=== PATIENT | female | born 1935 | race Caucasian/White ===

== ENCOUNTER 2016-12-25 20:10 | Emergency (ER) | payer MEDICARE, MEDICAID ==
[~2016-12-25] VITALS: Ht 170.2 cm; Wt 72.7 kg
[~2016-12-25 20:10] MED LIST: ACET1TAB12 PO; ACET325T51 PO; ALBU18HF INH; ALBU2.5V15 IH; ALPR0.25 PO; ALPR0.254 PO; AMLO10TA3 PO; ASPI-973 PO; BRIM5DRO BOTH_EYES; BRIN10DR BOTH_EYES; CARB15DR74; CHOL200016 PO; CYA1000I IM; CYAN100092 PO; ESCI20TA PO; HAL05 PO; LEVO75TA4 PO; LIDO700A6 TP; MEMA10SO PO; MORP-32 PO; MULT1CAP33 PO; MYLANTA PO; ONDA8TAB10 PO; OXYC1TAB24 PO; POLY17PO2 PO; QUET25TA PO; QUET50TA PO; SUCRETS; TRAV2.5D5 BOTH_EYES; [UNRECOGNIZED DRUG - CODE] PO
[2016-12-25 20:18] VITALS: BP 123/75; PULSE 80; RESP 16; O2SAT 97
--- NOTE | 2016-12-25 20:43 | ED.REPORT ---
HPI-Head Prob / Injury Date of Service Dec 25, 2016 ED Provider: Wagner Barbour DO Pt is a 81 year old female with a history of late stage Alzheimer's, HTN, and advanced dementia who presents to the ED via EMS after an unwitnessed ground level fall today. She c/o associated head pain and lip pain. LOC is unknown. Pt is currently taking aspirin, but no other blood thinners. Pt lives at [facility]. Her daughter reports confusion associated with Alzheimer's stating "she didn't recognize who I was and thought my brother was her boyfriend." Nursing Notes Stated Complaint: GROUND LEVEL FALL, HEAD INJURY Chief Complaint: Multiple Trauma/Fall Nursing Notes Reviewed: Yes Allergies: Coded Allergies: donepezil (Verified Adverse Reaction, Severe, Nightmares, 12/25/16) rivastigmine (Verified Adverse Reaction, Severe, 12/25/16) seizure-like activity and intubation required in July 2013 ER visit. duloxetine (Verified Adverse Reaction, Intermediate, confusion, 12/25/16) tramadol (Verified Adverse Reaction, Intermediate, GI upset, 12/25/16) venlafaxine (Verified Adverse Reaction, Intermediate, GI upset, 12/25/16) zolpidem (Unverified Adverse Reaction, Intermediate, oversedation, 12/25/16 ) Scheduled ([Mylanta]) 30 ML PO Q6 Acetaminophen (Acetaminophen) 325 Mg Tablet 650 MG PO Q6 Amlodipine (Amlodipine) 10 Mg Tablet 10 MG PO DAILY Aspirin (Aspirin) 81 Mg Tablet.dr 81 MG PO DAILY Brimonidine Tartrate/Timolol (Combigan Eye Drops) 5 Ml Drops 5 ML BOTH_EYES BID Brinzolamide (Azopt 1% Ophthalmic Suspension) 10 Ml Drops.susp 1 DROP BOTH_EYES TID Cholecalciferol (Vitamin D3) (Vitamin D) 2,000 Unit Tablet 2,000 UNIT PO DAILY Cyanocobalamin (Cyanocobalamin Injection) 1,000 Mcg/1 Ml Vial 1,000 MCG IM Monthly Cyanocobalamin (Vitamin B-12) (B-12) 1,000 Mcg Tablet 0 PO DAILY Escitalopram Oxalate (Lexapro) 20 Mg Tablet 20 MG PO DAILY Haloperidol (Haloperidol) 0.5 Mg Tablet 0.5 MG PO Q12 Levothyroxine (Levothyroxine) 75 Mcg Tablet 75 MCG PO DAILY Lidocaine (Lidoderm) 700 Mg Adh..patch 1 PATCH TP Q24 Memantine HCl (Namenda) 10 Mg/5 Ml Solution 5 MG PO HS Multivitamin (Multivitamins) 1 Each Capsule 1 EACH PO DAILY Quetiapine Fumarate (Seroquel) 25 Mg Tablet 25 MG PO BID Quetiapine Fumarate (Seroquel) 50 Mg Tablet 50 MG PO HS Travoprost (Benzalkonium) (Travoprost 0.004% Eye Drop) 2.5 Ml Drops 2.5 ML BOTH_ EYES HS Scheduled PRN Acetaminophen/Codeine 300-30mg (Tylenol/Codeine #3) 1 Each Tablet 2 EACH PO Q4- 6H PRN PRN For Pain Albuterol Sulfate (Ventolin HFA Inhaler) 200 Puff/18 Gm Inhaler 2 PUFF INH Q4 PRN PRN For Wheezing Albuterol Sulfate (Albuterol Inhalant Solution) 2.5 Mg/0.5 Ml Vial.neb 0 IH Q4 PRN PRN For Shortness of Breath Alprazolam (Alprazolam) 0.25 Mg Tablet 0.25 MG PO TID PRN PRN For Anxiety Alprazolam (Alprazolam) 0.25 Mg Tablet 0.25 MG PO Q6 PRN PRN For Anxiety Alprazolam (Xanax) 0.25 Mg Tablet 0.25 MG PO Q6HR PRN PRN For Anxiety Alprazolam (Alprazolam) 0.25 Mg Tablet 0.5 MG PO HS PRN PRN For Anxiety Carboxymethylcellulose Sodium (Refresh Tears) 15 Ml Drops 1 ML .ROUTE TID PRN PRN DRY Ondansetron ODT (Ondansetron ODT) 8 Mg Tab.rapdis 8 MG PO Q8 PRN PRN For Nausea Polyethylene Glycol 3350 (Polyethylene Glycol 3350) 17 Gm Powd.pack 17 GM PO DAILY PRN PRN For Constipation oxyCODONE-Acetaminophen 5-325 mg (oxyCODONE-Acetaminophen 5-325 mg) 1 Each Tablet 1 TAB PO Q8 PRN PRN For Pain Miscellaneous Medications ([Sucrets]) Cyanocobalamin (Vitamin B-12) (B-12) 1,500 Mcg Tab.rapdis 1,500 MCG PO Morphine Sulfate ER (Morphine Sulfate ER) 15 Mg Tablet.er 15 MG PO General Time Seen by Provider: 20:44 Chief Complaint Other (Ground level fall) Hx Obtained From: Patient, Daughter, EMS Arrived By: Ambulance Onset Occurred: Onset unknown Symptom Duration: Duration unknown Location: : Occipital region L: Occipital region R Quality: Painful Severity: Current: Moderate Severity: Maximum: Moderate Recent Healthcare: No recent doctor visit, No recent hospitalization Similar Sx Previous: No Past Medical History Past Medical History 1. Advanced dementia. 2. Chronic pain syndrome due to lumbar spinal stenosis, fibromyalgia, abdominal pain/IBS with narcotic habituation with two admissions related to either oversedation or withdrawal 3. Fibromyalgia (clinic note in 2006 & was on Lyrica in the past) 4. Depression. 5. Irritable bowel syndrome (clinic note 2006- was on Zelnorm in the past due to constipation issues) 6. Hospitalization June 04- May for sepsis due to community acquired lower lobe pneumonia,E. coli bacteremia due to UTI. 7. Diverticulitis, status post colon resection 8. Lumbosacral spinal stenosis with history of multiple steroid epidural injections 9. Chronic migraines 10. Glaucoma 11. Osteoarthritis 12. History of reflux (used to see Dr. Jens North- GI specialist in [place]) 13. History of hypertension 14. History of low B12 levels 15. ALTHEA (sleep study recommended) but not able to tolerate CPAP 16. Hospitalized for small bowel obstruction (February 2010- resolved with medical management) due to adhesions 17. History of Right renal artery aneurysm, distal, 8 mm. 18. Ventral hernia. 19. Hypothyroidism 20. History of esophageal stricture requiring dilatation (2003) 21. Hearing loss, using hearing aids Past Surgical History 1. Bilateral cataract surgeries 2. Left knee replacement(2000) with revision [place] [address] Andrews 3. Appendectomy 4. Partial Colon resection due to diverticulitis/diverticulosis- 1998- subsequent colonoscopy "normal" in 2003 5. Left breast tumor, benign, removed at [facility] about 14 years ago. Family History Noncontributory Smoking History Former Smoker Social History Lives at [facility] Alcohol Use: 1-3 per day Drug Use: Denies drug use Other Social History: Lives in [facility], Local resident Ambulatory Status Independent Review of Systems + Head pain + Lip pain Constitutional: Denies: Fever Complete sys rev & neg: except as marked. Respiratory: Denies: Non-productive cough, Shortness of breath Physical Exam Initial Vital Signs Vital Signs (First) Date Time Temp Pulse Resp B/P Pulse Ox O2 Delivery O2 Flow Rate FiO2 12/25/16 20:18 36.8 80 16 123/75 97 Room Air Initial VS: Reviewed Respiratory: Breath sounds normal, Clear to auscultation, No respiratory distress Cardiovascular: Regular rate & rhythm, Heart sounds normal, Intact distal pulses Abdomen / GI: Soft, Non-tender Extremities: Vascular intact, Neuro intact Skin: Warm, Dry, No cyanosis Psychiatric: Mood/affect normal, Behavior normal General/Constitutional: Awake, Alert HEAD: Occipital tenderness ENT: Atraumatic, Airway patent NECK: Mid-line neck tenderness Neurologic: CN II - XII intact Lower Extremity / Pelvis / MS: Neurologic intact, Vascular intact Legs are without signs of trauma Interpretation & Diagnostics Lab Results Interpretation Test 12/25/16 21:20 Hold Urine Received (Received) CT Head Interpretation IMPRESSION: 1. No acute intracranial abnormalities. 2. Cerebral volume loss and chronic microvascular ischemic changes. Dictated by: Suzan Williamson M.D. on 12/25/2016 at 21:45 Study: Head CT no contrast Interpretation / Wet Read by: Interpret - Radiologist CT C-Spine Interpretation IMPRESSION: 1. No fracture or dislocation. 2. Degenerative changes in cervical spine as described. Dictated by: Suzan Williamson M.D. on 12/25/2016 at 21:47 Study type: CT no contrast Interpretation / Wet Read by: Interpret - Radiologist Re-Eval/Medical Decision Source of Hx: Old records Re-Evaluation/Progress : Time of Eval: 22:11 Re-Evaluation/Progress Note: Pt rechecked. Informed pt and daughter of plan for discharge. Pt and daughter understands and agrees with plan for discharge. F/U instructions and RTER warnings given. All questions addressed. Counseled Regarding: Diagnosis, Lab results, Need for follow-up, When/why to return to ED Discharge & Departure Primary Impression: Fall at [facility] Encounter type: initial encounter Qualified Code: W19.XXXA - Unspecified fall, initial encounter Additional Impression: Head contusion Encounter type: initial encounter Contusion of head detail: unspecified part of head Qualified Code: S00.93XA - Contusion of unspecified part of head , initial encounter Disposition: Home All VS Reviewed: Yes Condition: Stable Patient Instructions: Contusion in Adults (ED), Fall Prevention for Older Adults (ED) Additional Instructions: The CT scan was reassuring. Take acetaminophen as directed for pain Call your primary care provider tomorrow for a follow-up appointment next week. Return to the Emergency Department for any new or worrisome symptoms. Referrals: Linette Pina MD (PCP) Scribe Attestation Portions of this note were transcribed by Jada Mendieta. I, Dr. Barbour personally performed the history, physical exam and medical decision-making; I reviewed and confirmed the accuracy of the information in the transcribed note. Signed by : Hailey Lawrence, 12/25/16. copies to: Linette Pina MD, Todd P DO Dec 25, 2016 20:43 Jada Majano Dec 25, 2016 21:32
--- NOTE | 2016-12-25 21:49 | DRSVH ---
PROCEDURE: CT BRAIN WITHOUT CONTRAST ([id number]) INDICATIONS: fall, head injury, neck pain TECHNIQUE: Noncontrast 4.5 mm thick angled axial sections acquired from the foramen magnum to the vertex, with c oronal reformats. COMPARISON: [facility], CT, BRAIN W/O CONTRAST, 08/12/2014, 21:46. FINDINGS: Image quality: Excellent. CSF spaces: Basal cisterns are patent. No extra-axial fluid collections. The ventricles are symmet mark anthony in size and shape. Brain: No intracranial bleeds or masses. There is moderate cerebral volume loss for age, with resul tant ventricular and sulcal prominence. There are mild periventricular and deep white matter chronic small vessel ischemic changes. There is intracranial internal carotid artery atherosclerosis. Skull and face: Calvarium and visualized facial bones appear intact, without suspicious lesions. Sinuses: Visualized sinuses and mastoids are clear. IMPRESSION: 1. No acute intracranial abnormalities. 2. Cerebral volume loss and chronic microvascular ischemic changes. Dictated by: Suzan Williamson M.D. on 12/25/2016 at 21:45 Approved by: Suzan Williamson M.D. on 12/25/2016 at 21:47
--- NOTE | 2016-12-25 21:55 | DRSVH ---
PROCEDURE: CT CERVICAL SPINE WITHOUT CONTRAST ([id number]) INDICATIONS: fall, head injury, neck pain TECHNIQUE: Noncontrast 3 mm thick sections acquired from the skull base to the T4 level. Sagittal and coronal r eformats were then constructed. For radiation dose reduction, the following was used: automated exp osure control, adjustment of mA and/or kV according to patient size. COMPARISON: [facility], CT, C-SPINE W/O CONTRAST, 12/25/2013, 4:58. FINDINGS: Image quality: Excellent. Bones: No fractures or dislocations. Visualized superior ribs are intact. Severe degenerative disc disease at C3-C4 and C4-C5 and mild to moderate degenerative disc disease at C5-C6 and C6-C7. There i s uncovertebral hypertrophy and bilateral facet arthropathy scattered in cervical spine. Soft tissues: Prevertebral soft tissues are normal in thickness. No paravertebral hematomas. No ap ical pneumothoraces. IMPRESSION: 1. No fracture or dislocation. 2. Degenerative changes in cervical spine as described. Dictated by: Suzan Williamson M.D. on 12/25/2016 at 21:47 Approved by: Suzan Williamson M.D. on 12/25/2016 at 21:53
== END 2016-12-25 22:36 | disposition home or self-care (01) ==
LOC: EDUNIT# 20:10 → EDBD 20:10 → SED 20:10
DX: S00.83XA Contusion of other part of head, initial encounter (principal); W18.39XA Other fall on same level, initial encounter; Y92.129 Unspecified place in nursing home as the place of occurrence of the external cause; Y93.89 Activity, other specified; Y99.8 Other external cause status; I10 Essential (primary) hypertension; F32.9 Major depressive disorder, single episode, unspecified; M79.7 Fibromyalgia; K21.9 Gastro-esophageal reflux disease without esophagitis; E03.9 Hypothyroidism, unspecified; H40.9 Unspecified glaucoma; G30.9 Alzheimer's disease, unspecified; Z87.891 Personal history of nicotine dependence; Z79.82 Long term (current) use of aspirin; Z88.5 Allergy status to narcotic agent; Z88.8 Allergy status to other drugs, medicaments and biological substances